=== PATIENT | male | born 1985 | race Caucasian/White ===

== ENCOUNTER 2017-02-02 09:23 | Emergency (ER) | payer OTHER ==
[~2017-02-02] VITALS: Ht 177.8 cm; Wt 85.0 kg
[~2017-02-02 09:23] MED LIST: AUGM875T PO
[2017-02-02 09:25] VITALS: BP 144/89; PULSE 81; RESP 16; TEMP 98.4; O2SAT 98
[2017-02-02] MEDS ORDERED: oxyCODONE/ACETAMINOPHEN 5 MG/325 MG TAB PO ONE (09:45)
--- NOTE | 2017-02-02 09:50 | PD ---
HPI Chief Complaint: Injury Time Seen by Provider: 09:41 Travel History International Travel<30 days: No Contact w/Intl Traveler<30days: No Traveled to known affect area: No History of Present Illness HPI 31-year-old male presents to emergency Department with complaint of right hand pain and right wrist pain after punching a punching bag game last night and his hand went too far and hit the metal back of the game. Denies paresthesias, loss of sensation to the affected hand. Reports decreased range of motion of the hand and wrist. Has not taken any medication to alleviate his symptoms. Has iced the hand. Rates pain 10/10. Describes pain as a pulsating sensation. Pain is constant. The pain is aggravated with movement and palpation. No known relieving factors. No known allergies. Has no other medical complaints. No other modifying factors or associated signs and symptoms. PFSH Past Medical History Autoimmune Disease: No Blood Disorders: No Cancer: No Cardiovascular Problems: Yes (INTERMITTENT TACHYCARDIA, SYNCOPE CHILD WITH EXERCISE) Diminished Hearing: No Endocrine: No Gastrointestinal Disorders: No Genitourinary: No Neurologic: No Psychiatric: No Respiratory: No Past Surgical History Abdominal Surgery: Yes (appendix) Appendectomy: Yes Other Surgery: Yes (NASAL 11/22) Social History Alcohol Use: Yes ("A COUPLE OF BEERS" DAILY; 6 beers 10/13/15) Tobacco Use: Yes (04/15 ppd) Substance Use: Yes (marijuana, occasionally; 10/13/15) Allergies-Medications (Allergen,Severity, Reaction): Coded Allergies: No Known Allergies (Verified , 02/02/17) Reported Meds & Prescriptions Reported Meds & Active Scripts Active Ibuprofen 800 Mg Tab 800 Mg PO Q6HR PRN Review of Systems Except as stated in HPI: all other systems reviewed are Neg Physical Exam Narrative GENERAL: Well-nourished, well-developed male patient, in no acute distress SKIN: Warm and dry. HEAD: Atraumatic. Normocephalic. EYES: Pupils equal and round. No scleral icterus. No injection or drainage. ENT: Mucosa pink and moist. Airway patent. NECK: Trachea midline. CARDIOVASCULAR: Regular rate. RESPIRATORY: No accessory muscle use. GASTROINTESTINAL: Flat. MUSCULOSKELETAL: Right wrist with tenderness on palpation; mild edema; limited range of motion; no obvious deformity. Right hand with significant edema; no obvious deformity; unable to assess range of motion of the fingers secondary to pain and swelling; fingers are pink and warm; sensory intact. Right upper extremity is supple and non-tense a 2+ radial pulses and sensory intact. No clubbing. No cyanosis. NEUROLOGICAL: Awake and alert. Oriented 3. No obvious cranial nerve deficits. Motor grossly within normal limits. Normal speech. PSYCHIATRIC: Appropriate mood and affect; insight and judgment normal. Data Data Last Documented VS Vital Signs Date Time Temp Pulse Resp B/P (MAP) Pulse Ox O2 Delivery O2 Flow Rate FiO2 02/02/17 09:25 98.4 81 16 144/89 (107) 98 Orders Orders Hand, Complete ([id number]) (02/02/17 09:35) Wrist, Complete ([id number]) (02/02/17 09:35) Ice/Cold Pack (02/02/17 09:35) Oxycodone-Acetamin 5-325 Mg (Percocet (02/02/17 09:45) Splint Or Brace Apply/Monitor (02/02/17 10:43) Ed Discharge Order (02/02/17 10:43) [facility] Medical Decision Making Medical Screen Exam Complete: Yes Emergency Medical Condition: Yes Medical Record Reviewed: Yes Differential Diagnosis Boxers fracture, wrist fracture, hand fracture dislocation Narrative Course 31-year-old male with right hand and wrist injury. Percocet administered in the ER. Right hand and wrist x-ray ordered. 1043: Right wrist and hand x-rays concludes: Last 24 hours Impressions Wrist X-Ray 02/02/17934 Signed Impressions: Service Date/Time: Thursday, February 02, 2017 09:59 - CONCLUSION: No acute fracture seen. Possible deep soft tissue swelling about the distal forearm. Gorge White MD Hand X-Ray 02/02/17934 Signed Impressions: Service Date/Time: Thursday, February 02, 2017 10:01 - CONCLUSION: No evidence of acute fracture or dislocation. Gorge White MD X-ray findings discussed with the patient. Elliott bandage and Velcro wrist splint provided for support. Ibuprofen and Lortab prescribed for home. Instructed patient to follow up with primary care provider. Patient verbalizes understanding and agreement with treatment plan. Patient is medically cleared and stable for discharge. Discussed reasons to return to the emergency department. Patient agrees with treatment plan. The patients vital signs are stable and the patient is stable for outpatient follow-up and treatment. Patient discharged home, stable and in no acute distress. Diagnosis Primary Impression: Injury of right hand Qualified Codes: S69.91XA - Unspecified injury of right wrist, hand and finger (s), initial encounter Additional Impression: Right wrist injury Qualified Codes: S69.91XA - Unspecified injury of right wrist, hand and finger (s), initial encounter Referrals: [facility] Hand Surgeon Primary Care Physician Patient Instructions: General Instructions, Hand Sprain (ED), Wrist Sprain (ED) Departure Forms: Tests/Procedures, Work Release Enter return to work date: Feb 05, 2017 Additional Instructions: Tylenol or ibuprofen as directed and as needed to reduce pain Rest, ice, compress, and elevate extremity to decrease pain and inflammation Elliott wrap for support Wrist Splint for support Avoid aggravating activity; increase activity as tolerated Follow-up with primary care provider Return to the emergency department immediately with worsening symptoms Med/Other Pt SpecificInfo: Prescription(s) given Scripts Hydrocodone-Acetaminophen (Lortab) 5-325 Mg Tab 1 TAB PO Q4H Y for PAIN, #8 TAB 0 Refills Prov: Lilli Rubin 02/02/17 Ibuprofen (Ibuprofen) 800 Mg Tab 800 MG PO Q6HR Y for PAIN, #30 TAB 0 Refills Prov: Lilil Rubin 02/02/17 Disposition: 01 DISCHARGE HOME Condition: Stable Lilli Rubin Feb 02, 2017 09:50
--- NOTE | 2017-02-02 10:29 | RADRPT ---
EXAM DATE/TIME: 02/02/2017 09:59 [facility] COMPARISON: No previous studies available for comparison. INDICATIONS : Right wrist pain and swelling after punching a steel post. MEDICAL HISTORY : None. SURGICAL HISTORY : Appendectomy. 4th & 5th metacarpal repair. ENCOUNTER: Initial ACUITY: 2 days PAIN SCORE: 8/10 LOCATION: Right wrist FINDINGS: Three-view examination was performed. Indwelling orthopedic pins in the 4th and 5th metacarpals. Th e 4th digit pin extends into the hamate. There is normal alignment of the carpal bones. Distal radi us and ulna appear grossly intact. On the lateral view, there is some questionable soft tissue swell ing of the distal volar forearm. CONCLUSION: No acute fracture seen. Possible deep soft tissue swelling about the distal forearm. Gorge White MD on February 02, 2017 at 10:26 Board Certified Radiologist. This report was verified electronically.
--- NOTE | 2017-02-02 10:38 | RADRPT ---
EXAM DATE/TIME: 02/02/2017 10:01 [facility] COMPARISON: HAND RIGHT COMPLETE ([id number]), October 14, 2015, 12:30. INDICATIONS : Right hand pain and swelling after punching a steel post. MEDICAL HISTORY : None. SURGICAL HISTORY : Appendectomy. 4th & 5th metacarpal repair. ENCOUNTER: Initial ACUITY: 2 days PAIN SCORE: 8/10 LOCATION: Right hand FINDINGS: Three view examination of the right hand demonstrates no soft tissue swelling, dislocation, or fractu re. The carpal bones appear intact. The interphalangeal and metacarpophalangeal joints are intact. Bony mineralization is normal. Orthopedic pins in the 4th and 5th metacarpals with the 4th pin als o extending into the hamate. CONCLUSION: No evidence of acute fracture or dislocation. Gorge White MD on February 02, 2017 at 10:28 Board Certified Radiologist. This report was verified electronically.
[2017-02-02] MEDS ORDERED: IBUP800T23 PO (10:42)
[2017-02-02] MEDS ORDERED: HYDR-3533 PO (10:47)
== END 2017-02-02 11:08 | disposition home or self-care (01) ==
LOC: NEPK 09:23
DX: S69.91XA Unspecified injury of right wrist, hand and finger(s), initial encounter (principal); F17.210 Nicotine dependence, cigarettes, uncomplicated; W22.8XXA Striking against or struck by other objects, initial encounter
CPT/HCPCS: 73110; 73130; 99283; L3908

== ENCOUNTER 2017-06-12 16:17 | Emergency (ER) | payer OTHER ==
[~2017-06-12] VITALS: Ht 177.8 cm; Wt 85.0 kg
[~2017-06-12 16:17] MED LIST changes: -AUGM875T PO; +HYDR-3533 PO; +IBUP1TAB7 PO
[2017-06-12 16:23] VITALS: BP 156/95; PULSE 75; RESP 16; TEMP 97.2; O2SAT 100
[2017-06-12] MEDS ORDERED: SODIUM CHLOR 0.9% 1000 ML INJ 1,000 ML IV ONE (16:44)
[2017-06-12] MEDS ORDERED: SODIUM CHLORIDE 0.9% FLUSH 10 ML FLUSH IVF PRN (16:45)
--- NOTE | 2017-06-12 16:47 | PD ---
HPI Chief Complaint: Syncope/Near-Syncope Time Seen by Provider: 16:34 Travel History International Travel<30 days: No Contact w/Intl Traveler<30days: No Traveled to known affect area: No History of Present Illness HPI 31-year-old male presents to the emergency department for evaluation of headache , dizziness that started approximately 30 minutes ago. Patient states he was at work when he started to have a headache. He states is a mid frontal headache , aching and throbbing. Patient also states that he felt like he was going to pass out, but did not. Patient states that last week he had an episode where he felt shaky, short of breath with jaw pain. Patient states that he did smoke marijuana one week ago. Patient currently rates headache 01/19. He states it started gradually. He denies any chest pain. No abdominal pain. No nausea, vomiting. Patient reports no chronic medical problems and takes no prescribed medications. He denies any history of IV drug use. Moderate severity. No exacerbating or alleviating factors. PFSH Past Medical History Autoimmune Disease: No Blood Disorders: No Cancer: No Cardiovascular Problems: Yes (INTERMITTENT TACHYCARDIA, SYNCOPE CHILD WITH EXERCISE) Diminished Hearing: No Endocrine: No Gastrointestinal Disorders: No Genitourinary: No Neurologic: No Psychiatric: No Respiratory: No Past Surgical History Abdominal Surgery: Yes (appendix) Appendectomy: Yes Other Surgery: Yes (NASAL 11/22) Social History Alcohol Use: Yes ("A COUPLE OF BEERS" DAILY; 6 beers 10/13/15) Tobacco Use: Yes (04/15 ppd) Substance Use: Yes (marijuana, occasionally) Allergies-Medications (Allergen,Severity, Reaction): Coded Allergies: No Known Allergies (Verified Adverse Reaction, Unknown, 06/12/17) Reported Meds & Prescriptions Reported Meds & Active Scripts Active No Active Prescriptions or Reported Medications Review of Systems Except as stated in HPI: all other systems reviewed are Neg Physical Exam Narrative GENERAL: Well-nourished, well-developed male patient, afebrile. SKIN: Focused skin assessment warm/dry. HEAD: Normocephalic. Atraumatic. EYES: No scleral icterus. No injection or drainage. PERRLA. ENT: Mucosa pink and moist. No erythema or exudates. No uvular edema. No uvular , palatal, or tonsillar deviation. Airway patent. Nasal turbinates appear normal without nasal blood, purulent drainage or septal hematoma. Bilateral tympanic membranes are clear without erythema or perforation. NECK: Supple, trachea midline. No JVD or lymphadenopathy. CARDIOVASCULAR: Regular rate and rhythm without murmurs, gallops, or rubs. Bilateral radial and pedal pulses are 2+. RESPIRATORY: Breath sounds equal bilaterally. No accessory muscle use. Lungs sounds are clear to auscultation. GASTROINTESTINAL: Abdomen soft, non-tender, nondistended. MUSCULOSKELETAL: No cyanosis, or edema. Bilateral upper and lower extremity strength 5/5. All extremities are neurovascularly intact. BACK: Nontender without obvious deformity. No CVA tenderness. NEUROLOGICAL: Awake and alert. Cranial nerves II through XII intact. Motor and sensory grossly within normal limits. Five out of 5 muscle strength in all muscle groups. Normal speech. Finger to nose is normal bilaterally. Heel-to- mojica is normal bilaterally. Data Data Last Documented VS Vital Signs Date Time Temp Pulse Resp B/P (MAP) Pulse Ox O2 Delivery O2 Flow Rate FiO2 06/12/17 19:01 74 16 144/86 (105) 98 Room Air 06/12/17 17:21 2.00 06/12/17 16:23 97.2 Orders Orders Electrocardiogram (06/12/17 16:44) Complete Blood Count With Diff (06/12/17 16:44) Comprehensive Metabolic Panel (06/12/17 16:44) Magnesium (Mg) (06/12/17 16:44) Ckmb (Isoenzyme) Profile (06/12/17 16:44) Troponin I (06/12/17 16:44) Ct Brain W/O Iv Contrast(Rout) (06/12/17 16:44) Ecg Monitoring (06/12/17 16:44) Iv Access Insert/Monitor (06/12/17 16:44) Oximetry (06/12/17 16:44) Sodium Chloride 0.9% Flush (Ns Flush) (06/12/17 16:45) Sodium Chlor 0.9% 1000 Ml Inj (Ns 1000 M (06/12/17 16:44) Orthostatic Vital Signs (06/12/17 16:44) CKMB (06/12/17 17:09) CKMB% (06/12/17 17:09) Prochlorperazine Inj (Compazine Inj) (06/12/17 19:15) Diphenhydramine Inj (Benadryl Inj) (06/12/17 19:15) Ketorolac Inj (Toradol Inj) (06/12/17 19:15) Meclizine (Antivert) (06/12/17 19:15) Labs Laboratory Tests Test 06/12/17 17:09 White Blood Count 11.3 TH/MM3 Red Blood Count 5.40 MIL/MM3 Hemoglobin 16.4 GM/DL Hematocrit 48.0 % Mean Corpuscular Volume 88.8 FL Mean Corpuscular Hemoglobin 30.3 PG Mean Corpuscular Hemoglobin Concent 34.1 % Red Cell Distribution Width 13.6 % Platelet Count 230 TH/MM3 Mean Platelet Volume 8.6 FL Neutrophils (%) (Auto) 69.8 % Lymphocytes (%) (Auto) 21.7 % Monocytes (%) (Auto) 7.5 % Eosinophils (%) (Auto) 0.5 % Basophils (%) (Auto) 0.5 % Neutrophils # (Auto) 7.9 TH/MM3 Lymphocytes # (Auto) 2.5 TH/MM3 Monocytes # (Auto) 0.8 TH/MM3 Eosinophils # (Auto) 0.1 TH/MM3 Basophils # (Auto) 0.1 TH/MM3 CBC Comment DIFF FINAL Differential Comment Blood Urea Nitrogen 9 MG/DL Creatinine 0.94 MG/DL Random Glucose 86 MG/DL Total Protein 7.2 GM/DL Albumin 4.0 GM/DL Calcium Level 8.7 MG/DL Magnesium Level 1.7 MG/DL Alkaline Phosphatase 82 U/L Aspartate Amino Transf (AST/SGOT) 26 U/L Alanine Aminotransferase (ALT/SGPT) 30 U/L Total Bilirubin 1.1 MG/DL Sodium Level 139 MEQ/L Potassium Level 3.9 MEQ/L Chloride Level 103 MEQ/L Carbon Dioxide Level 28.5 MEQ/L Anion Gap 8 MEQ/L Estimat Glomerular Filtration Rate 94 ML/MIN Total Creatine Kinase 171 U/L Creatine Kinase MB LESS THAN 0.5 NG/ML Troponin I LESS THAN 0.02 NG/ML MDM Medical Decision Making Medical Screen Exam Complete: Yes Emergency Medical Condition: Yes Medical Record Reviewed: Yes Interpretation(s) CT brain - normal examination Differential Diagnosis Electrolyte abnormality versus dehydration versus intracranial abnormality Narrative Course 31-year-old male presents to the emergency department for evaluation of headache and dizziness that started approximately 30 minutes ago. EKG, CBC, CMP , magnesium, CK, troponin, orthostatic vital signs are ordered and pending. CT of the brain is ordered and pending. Patient is given normal saline 1 L IV bolus. EKG shows sinus rhythm, no acute ST changes. CBC shows leukocytosis of 11.3, no acute abnormalities. CMP shows no acute abnormalities. Magnesium is 1.7. CK is 171. Troponin is less than 0.02. Orthostatic VS are negative for orthostatic hypotension. CT of the brain is normal. Patient is given Compazine 10 mg IV, Benadryl 25 mg IV, Toradol 30 mg IV for headache. He is given meclizine 25 mg PO for dizziness. He will be discharged with a RX for meclizine to follow up with his PCP. My attending physician, Dr. Abbott, is aware of all findings and agrees with plan and disposition. Diagnosis Primary Impression: Headache Qualified Codes: R51 - Headache Additional Impression: Dizziness Referrals: Primary Care Physician call for appointment Patient Instructions: Acute Headache (ED), Dizziness (ED), General Instructions Departure Forms: Tests/Procedures, Work Release Enter return to work date: Jun 15, 2017 Additional Instructions: Drink plenty of fluids. Take meclizine as directed as needed for dizziness. Follow-up with your primary care physician. Return to the emergency department for any acute worsening of symptoms.n as directed as needed for dizziness. Med/Other Pt SpecificInfo: Prescription(s) given Scripts Meclizine (Meclizine) 25 Mg Tab 25 MG PO TID Y for VERTIGO, #21 TAB 0 Refills Prov: Kavita Hoover 06/12/17 Disposition: DISCHARGE HOME Condition: Stable Kavita Hoover Jun 12, 2017 16:47
[2017-06-12 17:21] VITALS: BP_SYST 116; BP_SYST 119; BP_DIAS 68; BP_DIAS 69; RESP 19; RESP 20; O2SAT 100
[2017-06-12 17:30] LABS: AUTOMATED NEUTROPHIL # 7.9 TH/MM3 (1.8-7.7); BASOPHIL # 0.1 TH/MM3 (0-0.2); BASOPHIL % 0.5 % (0.0-2.0); EOSINOPHIL # 0.1 TH/MM3 (0-0.4); EOSINOPHIL % 0.5 % (0.0-4.0); HEMOGLOBIN 16.4 GM/DL (13.0-17.0); LYMPH % 21.7 % (9.0-44.0); LYMPHOCYTE # 2.5 TH/MM3 (1.0-4.8); MEAN CELL VOLUME 88.8 FL (80.0-100.0); MEAN CORPUSCULAR HEMOGLOBIN 30.3 PG (27.0-34.0); MEAN CORPUSCULAR HGB CONC 34.1 % (32.0-36.0); MEAN PLATELET VOLUME 8.6 FL (7.0-11.0); MONO % 7.5 % (0.0-8.0); MONOCYTE # 0.8 TH/MM3 (0-0.9); NEUT % 69.8 % (16.0-70.0); PLATELET COUNT 230 TH/MM3 (150-450); RED CELL DISTRIBUTION WIDTH 13.6 % (11.6-17.2); WHITE BLOOD COUNT 11.3 TH/MM3 (4.0-11.0)
[2017-06-12 17:46] LABS: ALT (GPT) 30 U/L (12-78)
[2017-06-12 17:51] LABS: ALKALINE PHOSPHATASE 82 U/L (45-117); AST (GOT) 26 U/L (15-37); BICARBONATE 28.5 MEQ/L (21.0-32.0); BLOOD UREA NITROGEN 9 MG/DL (7-18); CALCIUM 8.7 MG/DL (8.5-10.1); CHLORIDE 103 MEQ/L (98-107); CREATININE 0.94 MG/DL (0.60-1.30); GLOMERULAR FILTRATION RATE 94 ML/MIN (>89); GLUCOSE,RANDOM 86 MG/DL (74-106); MAGNESIUM 1.7 MG/DL (1.5-2.5); SODIUM (NA) 139 MEQ/L (136-145); TOTAL BILIRUBIN ADULT 1.1 MG/DL (0.2-1.0); TOTAL PROTEIN 7.2 GM/DL (6.4-8.2); TROPONIN I LESS THAN 0.02 NG/ML (0.02-0.05)
--- NOTE | 2017-06-12 18:59 | RADRPT ---
EXAM DATE/TIME: 06/12/2017 18:38 [facility] COMPARISON: CT BRAIN W/O CONTRAST, May 20, 2015, 12:25. INDICATIONS : Syncopal episode, dizziness, nausea. RADIATION DOSE: 56.35 CTDIvol (mGy) MEDICAL HISTORY : Cardiovascular disease. SURGICAL HISTORY : Appendectomy. ENCOUNTER: Initial ACUITY: 1 day PAIN SCALE: 0/10 LOCATION: cranial TECHNIQUE: Multiple contiguous axial images were obtained of the head. Using automated exposure control and adj ustment of the mA and/or kV according to patient size, radiation dose was kept as low as reasonably a chievable to obtain optimal diagnostic quality images. DICOM format image data is available electro nically for review and comparison. FINDINGS: CEREBRUM: The ventricles are normal for age. No evidence of midline shift, mass lesion, hemorrhage or acute in farction. No extra-axial fluid collections are seen. POSTERIOR FOSSA: The cerebellum and brainstem are intact. The 4th ventricle is midline. The cerebellopontine angle i s unremarkable. EXTRACRANIAL: The visualized portion of the orbits is intact. SKULL: The calvaria is intact. No evidence of skull fracture. CONCLUSION: Normal examination. Steve Mario MD on June 12, 2017 at 18:57 Board Certified Radiologist. This report was verified electronically.
[2017-06-12 19:01] VITALS: BP 144/86; PULSE 74; RESP 16; O2SAT 98
[2017-06-12] MEDS ORDERED: KETOROLAC TROMETHAMINE 30 MG/ML (IVP) VIAL IV PUSH ONE (19:15)
[2017-06-12] MEDS ORDERED: MECLIZINE HCL 25 MG TAB PO ONE (19:15)
[2017-06-12] MEDS ORDERED: PROCHLORPERAZINE INJ 10 MG/2 ML VIAL IV PUSH ONE (19:15)
[2017-06-12] MEDS ORDERED: diphenhydrAMINE HCL 50 MG/ML VIAL IV PUSH ONE (19:15)
[2017-06-12] MEDS ORDERED: MECL-62 PO (19:23)
--- NOTE | 2017-06-13 10:18 | EKG ---
Date Performed: 06/12/2017 Time Performed: 18:58:21 PTAGE: 31 years EKG: Sinus rhythm NORMAL ECG PREVIOUS TRACING : 08/13/2011 16.18 DOCTOR: Royer Tineo Interpretating Date/Time 06/13/2017 10:17:54
== END 2017-06-12 20:05 | disposition home or self-care (01) ==
LOC: NEPE 16:17
DX: R51 Headache (principal); R42 Dizziness and giddiness; D72.829 Elevated white blood cell count, unspecified; F17.200 Nicotine dependence, unspecified, uncomplicated
CPT/HCPCS: 70450; 80053; 82550; 82552; 83735; 84484; 85025; 93005; 96361; 96374; 96375; 99285; J0780; J1200; J1885; J7030

== ENCOUNTER 2017-09-25 22:39 | Emergency (ER) | payer OTHER ==
[2017-09-25] VITALS (8 sets, daily range): BP systolic 35–146; BP diastolic 18–80; PULSE 48–137; RESP 16–18; TEMP 98.8; O2SAT 95–99
[~2017-09-25] VITALS: Ht 175.3 cm; Wt 88.4 kg
[~2017-09-25 22:39] MED LIST changes: -HYDR-3533 PO; -IBUP1TAB7 PO; +MECL-62 PO
[2017-09-25] MEDS ORDERED: LIDOCAINE 1%/EPINEPHrine 1:100,000 SOLN 20 ML VIAL ONE (23:11)
[2017-09-26] MEDS ORDERED: ACETAMINOPHEN 500 MG CPLT PO ONE (00:15)
--- NOTE | 2017-09-26 00:26 | PD ---
HPI Chief Complaint: Laceration/Skin Injury Time Seen by Provider: 00:14 Travel History International Travel<30 days: No Contact w/Intl Traveler<30days: No Traveled to known affect area: No History of Present Illness HPI The patient is a 32-year-old male that sustained a right foot laceration in the shower at approximately 2100. The laceration on the dorsum of his foot has been bleeding profusely and the patient felt dizziness on standing and actually lost vision briefly. He did not faint. The patient is also nauseated when he looked at the laceration and the bleeding. His last tetanus shot was within 10 years. He is not on any anticoagulants or aspirin. The patient also has dental pain, 09/19 on tooth #30 for several days. PFSH Past Medical History Autoimmune Disease: No Blood Disorders: No Cancer: No Cardiovascular Problems: Yes (INTERMITTENT TACHYCARDIA, SYNCOPE CHILD WITH EXERCISE) Diminished Hearing: No Endocrine: No Gastrointestinal Disorders: No Genitourinary: No Neurologic: No Psychiatric: No Respiratory: No Influenza Vaccination: No Past Surgical History Abdominal Surgery: Yes (appendix) Appendectomy: Yes Other Surgery: Yes (NASAL 11/22) Social History Alcohol Use: Yes ("A COUPLE OF BEERS" DAILY; 6 beers 10/13/15) Tobacco Use: Yes (04/15 ppd) Substance Use: Yes (marijuana, occasionally) Allergies-Medications (Allergen,Severity, Reaction): Coded Allergies: No Known Allergies (Verified Allergy, Unknown, 09/26/17) Reported Meds & Prescriptions Reported Meds & Active Scripts Active Meclizine (Meclizine HCl) 25 Mg Tab 25 Mg PO TID PRN Review of Systems Except as stated in HPI: all other systems reviewed are Neg Physical Exam Narrative GENERAL: Well-nourished, well-developed patient in moderate apparent distress with his nausea and his lightheadedness. His initial blood pressure 127/80 but when he became nauseated his pressure went down as low as 35/18. His heart rate was only 48 at that time. The patient remained alert. When the patient became nauseated he appeared pale. SKIN: Focused skin assessment warm/dry. There is a 4 cm laceration on the dorsum of the right foot. There is a 4 cm laceration on the right lower leg. The laceration on the dorsum the right foot is pumping out blood when the pressure bandage was removed. HEAD: Normocephalic. EYES: No scleral icterus. No injection or drainage. NECK: Supple, trachea midline. No JVD or lymphadenopathy. CARDIOVASCULAR: Regular rate and rhythm without murmurs, gallops, or rubs. RESPIRATORY: Breath sounds equal bilaterally. No accessory muscle use. GASTROINTESTINAL: Abdomen soft, non-tender, nondistended. MUSCULOSKELETAL: No cyanosis, or edema. BACK: Nontender without obvious deformity. No CVA tenderness. DENTAL: No loose or chipped teeth. No malocclusion. Tooth #30 is tender but no drainable abscesses present. Data Data Last Documented VS Vital Signs Date Time Temp Pulse Resp B/P (MAP) Pulse Ox O2 Delivery O2 Flow Rate FiO2 09/25/17 23:40 89 16 116/72 (87) 98 Room Air 09/25/17 22:44 98.8 Orders Orders Lidocai-Epi 1%-1:100,000 Inj (Xylocaine- (09/25/17 23:11) Foot, Complete ([id number]) (09/25/17 ) Complete Blood Count With Diff (09/26/17 00:01) Type And Screen (09/26/17 00:01) Comprehensive Metabolic Panel (09/26/17 00:01) Sodium Chlor 0.9% 1000 Ml Inj (Ns 1000 M (09/26/17 00:15) Acetaminophen (Tylenol) (09/26/17 00:15) Clindamycin 900 Mg/Ns Premix (Cleocin 90 (09/26/17 00:45) Labs Laboratory Tests Test 09/25/17 23:00 White Blood Count 7.1 TH/MM3 Red Blood Count 5.51 MIL/MM3 Hemoglobin 17.0 GM/DL Hematocrit 48.5 % Mean Corpuscular Volume 88.0 FL Mean Corpuscular Hemoglobin 30.8 PG Mean Corpuscular Hemoglobin Concent 35.0 % Red Cell Distribution Width 12.6 % Platelet Count 303 TH/MM3 Mean Platelet Volume 9.2 FL Neutrophils (%) (Auto) 52.1 % Lymphocytes (%) (Auto) 37.8 % Monocytes (%) (Auto) 8.5 % Eosinophils (%) (Auto) 0.8 % Basophils (%) (Auto) 0.8 % Neutrophils # (Auto) 3.6 TH/MM3 Lymphocytes # (Auto) 2.7 TH/MM3 Monocytes # (Auto) 0.6 TH/MM3 Eosinophils # (Auto) 0.1 TH/MM3 Basophils # (Auto) 0.1 TH/MM3 CBC Comment DIFF FINAL Differential Comment Blood Urea Nitrogen 8 MG/DL Creatinine 0.91 MG/DL Random Glucose 150 MG/DL Total Protein 7.4 GM/DL Albumin 3.9 GM/DL Calcium Level 8.3 MG/DL Alkaline Phosphatase 108 U/L Aspartate Amino Transf (AST/SGOT) 22 U/L Alanine Aminotransferase (ALT/SGPT) 42 U/L Total Bilirubin 0.7 MG/DL Sodium Level 141 MEQ/L Potassium Level 3.0 MEQ/L Chloride Level 106 MEQ/L Carbon Dioxide Level 20.7 MEQ/L Anion Gap 14 MEQ/L Estimat Glomerular Filtration Rate 97 ML/MIN [facility] Medical Decision Making Medical Screen Exam Complete: Yes Emergency Medical Condition: Yes Medical Record Reviewed: Yes Differential Diagnosis Laceration of dorsalis pedis artery, laceration of branch of dorsalis pedis artery, laceration anterior tibial area, foreign body in wound Narrative Course The patient has lost a lot of blood but he is not anemic even after a blood draw following 2 L of saline. He will need to keep the compressive bandage on for 2 weeks and the stitches will be removed in 2 weeks. If he has any problems he is to return the emergency department. He also has a dental infection is put on clindamycin which may help prevent an infection of the lacerations as well as help a dental infection. He is to follow-up with a dentist. Diagnosis Primary Impression: Laceration of foot Additional Impressions: Laceration of branch of dorsalis pedis artery Laceration of anterior lower leg Dental infection Additional Instructions: Stitches come out in 2 weeks. You will get a work excuse to cover you for 2 weeks. If you have any problems, please return to the emergency department. This area has a high rate of infection. As we discussed, follow-up with a dentist as soon as possible. The ibuprofen is taken regularly, 1 tablet 3 times daily. Med/Other Pt SpecificInfo: Prescription(s) given Scripts Ibuprofen (Ibuprofen) 800 Mg Tab 800 MG PO TID, #30 TAB 0 Refills Prov: Adolph Glasgow MD 09/26/17 Clindamycin (Clindamycin) 300 Mg Cap 300 MG PO Q6H for Infection, #40 CAP 0 Refills Prov: Adolph Glasgow MD 09/26/17 Disposition: 01 DISCHARGE HOME Condition: Stable Adolph Glasgow MD Sep 26, 2017 00:26
[2017-09-26 00:32] LABS: AUTOMATED NEUTROPHIL # 3.6 TH/MM3 (1.8-7.7); BASOPHIL # 0.1 TH/MM3 (0-0.2); BASOPHIL % 0.8 % (0.0-2.0); EOSINOPHIL # 0.1 TH/MM3 (0-0.4); EOSINOPHIL % 0.8 % (0.0-4.0); HEMATOCRIT 48.5 % (39.0-51.0); LYMPH % 37.8 % (9.0-44.0); LYMPHOCYTE # 2.7 TH/MM3 (1.0-4.8); MEAN CORPUSCULAR HEMOGLOBIN 30.8 PG (27.0-34.0); MEAN PLATELET VOLUME 9.2 FL (7.0-11.0); MONO % 8.5 % (0.0-8.0); MONOCYTE # 0.6 TH/MM3 (0-0.9); NEUT % 52.1 % (16.0-70.0); PLATELET COUNT 303 TH/MM3 (150-450); RED BLOOD COUNT 5.51 MIL/MM3 (4.50-5.90); RED CELL DISTRIBUTION WIDTH 12.6 % (11.6-17.2); WHITE BLOOD COUNT 7.1 TH/MM3 (4.0-11.0)
[2017-09-26] MEDS: SODIUM CHLOR 0.9% 1000 ML INJ 1,000 ML IV SCH ×2 (00:36→00:37)
[2017-09-26] MEDS ORDERED: CLINDAMYCIN 900 MG/NS PREMIX 50 ML IV ONE (00:45)
[2017-09-26 00:47] LABS: CHLORIDE 106 MEQ/L (98-107); SODIUM (NA) 141 MEQ/L (136-145)
[2017-09-26 00:50] LABS: ALBUMIN 3.9 GM/DL (3.4-5.0); BICARBONATE 20.7 MEQ/L (21.0-32.0); BLOOD UREA NITROGEN 8 MG/DL (7-18); CALCIUM 8.3 MG/DL (8.5-10.1); GLUCOSE,RANDOM 150 MG/DL (74-106)
[2017-09-26 00:53] LABS: ALT (GPT) 42 U/L (12-78); AST (GOT) 22 U/L (15-37); CREATININE 0.91 MG/DL (0.60-1.30); GLOMERULAR FILTRATION RATE 97 ML/MIN (>89)
[2017-09-26 00:55] LABS: TOTAL BILIRUBIN ADULT 0.7 MG/DL (0.2-1.0); TOTAL PROTEIN 7.4 GM/DL (6.4-8.2)
[2017-09-26 00:56] LABS: ALKALINE PHOSPHATASE 108 U/L (45-117)
[2017-09-26 01:10] VITALS: BP 108/62; PULSE 102; RESP 16; O2SAT 99
--- NOTE | 2017-09-26 01:13 | RADRPT ---
EXAM DATE: 09/26/2017 12:50 AM EDT AGE/SEX: 32 years / Male INDICATIONS: Right foot laceration. CLINICAL DATA: This is the patient's initial encounter. Patient reports that signs and symptoms have been present for 1 day and indicates a pain score of 8/10. MEDICAL/SURGICAL HISTORY: None. None. COMPARISON: [facility], FOOT RIGHT COMPLETE ([id number]), 05/20/2015. . FINDINGS: Bony structures are intact and in normal alignment. Osseous density is normal. Soft tissue swelling. No radiopaque foreign bodies seen. CONCLUSION: Soft tissue swelling without fracture Electronically signed by: Jessee Oliveira MD 09/26/2017 1:12 AM EDT
[2017-09-26] MEDS ORDERED: CLIN300C5 PO (01:39)
[2017-09-26] MEDS ORDERED: IBUP1TAB7 PO (01:40)
[2017-09-26] MEDS ORDERED: KETOROLAC TROMETHAMINE 30 MG/ML (IVP) VIAL IV PUSH ONE (02:00)
[2017-09-26 02:10] VITALS: BP 118/68; PULSE 100; RESP 16; O2SAT 98
[2017-09-26 02:23] VITALS: RESP 16
== END 2017-09-26 02:36 | disposition home or self-care (01) ==
LOC: PHED 22:39
DX: S91.311A Laceration without foreign body, right foot, initial encounter (principal); S81.811A Laceration without foreign body, right lower leg, initial encounter; K04.7 Periapical abscess without sinus; F17.200 Nicotine dependence, unspecified, uncomplicated; F12.90 Cannabis use, unspecified, uncomplicated; W18.30XA Fall on same level, unspecified, initial encounter
CPT/HCPCS: 12004; 73630; 80053; 85025; 86850; 86900; 86901; 96361; 96365; 96375; 99284; J1885; J7030